=== PATIENT | female | born 1935 | race Caucasian/White ===

== ENCOUNTER 2021-07-20 16:07 | Emergency (ER) | payer MEDICARE, BC ==
[2021-07-20] MEDS ORDERED: Sodium Chloride 0.9% 10 ML Syringe FLUSH PRN (16:25)
[2021-07-20] MEDS ORDERED: Diltiazem 25 MG/5 ML SDV IVPUSH ONE (16:26)
[2021-07-20 16:43] LABS: ESTIMATED GFR 53 (>60)
[2021-07-20] MEDS ORDERED: Metoprolol Tartrate 5 MG in Sodium Chloride 0.9% 50 ML IV ONE (16:49)
[2021-07-20] MEDS ORDERED: Metoprolol Tartrate 50 MG Tab PO STA (16:50)
[2021-07-20] MEDS ORDERED: Nitrofurantoin Monohydrate/Macrocrystalline 100 MG Cap PO ONE (19:19)
== END 2021-07-20 19:35 ==
LOC: FB.ED 16:07
DX: I48.91 Unspecified atrial fibrillation (principal); I48.92 Unspecified atrial flutter; N39.0 Urinary tract infection, site not specified; Z88.8 Allergy status to other drugs, medicaments and biological substances
CPT/HCPCS: 36415; 71045; 80053; 81001; 83880; 84484; 85025; 93005; 93010; 96365; 96375; 99285; A9270; J3490